=== PATIENT | female | born 1990 | race Caucasian/White ===

== ENCOUNTER 2016-09-02 20:42 | Emergency (ER) | payer OTHER ==
[~2016-09-02] VITALS: Ht 175.3 cm; Wt 64.6 kg
[~2016-09-02 20:42] MED LIST: ASPI325T4
[2016-09-02] MEDS ORDERED: SODIUM CHLORIDE FLUSH 10ML SYR IVF ONE (21:30)
[2016-09-02] MEDS ORDERED: SODIUM CHLORIDE 0.9% 1,000ML IVBOLUS ONE (21:30)
[2016-09-02 21:36] LABS: HEMOGLOBIN 14.4 g/dL (11.7-16.4)
[2016-09-02 21:48] LABS: ASPARTATE AMINO TRANSFERASE 15 U/L (15-37); BLOOD UREA NITROGEN 18 mg/dL (7-18)
[2016-09-02] MEDS ORDERED: OMNIPAQUE 350 MG/ML, 100ML BOTTLE ONE (22:20)
[2016-09-02 23:18] VITALS: BP 117/57
== END 2016-09-02 23:23 | disposition home or self-care (01) ==
LOC: ED 23:00
DX: R10.9 Unspecified abdominal pain (principal)
CPT/HCPCS: 36415; 74177; 80053; 81003; 83690; 84703; 85025; 96360; 99285; J7030; Q9967

== ENCOUNTER → 2017-02-22 | Outpatient (CLI) | payer OTHER ==
[~2017-02-22] MED LIST changes: +ASPI325T17; -ASPI325T4; +FIBER TAB PO; +NONE PER PT
== END | disposition home or self-care (01) ==
LOC: STAR 08:22
PROVIDERS: ATTEND Orthopaedic Surgery
DX: Z01.818 Encounter for other preprocedural examination (principal); I51.7 Cardiomegaly; M77.42 Metatarsalgia, left foot
CPT/HCPCS: 93005

== ENCOUNTER 2017-02-26 08:34 | Day surgery (SDC) | payer OTHER ==
[~2017-02-26] VITALS: Ht 172.7 cm; Wt 67.0 kg
[~2017-02-26 08:34] MED LIST changes: +CEFAZOLIN 1,000 MG ONE; +DEXAMETHASONE 4 MG/ML, 1ML ONE; +FENTANYL PF 100 MCG/2ML ONE; +GLYCOPYRROLATE 0.2MG/1ML, 5ML ONE; +MIDAZOLAM 1 MG/ML, 2ML ONE; +NEOSTIGMINE 1 MG/ML, 10ML ONE; +ONDANSETRON 2MG/ML, 2ML ONE; +PROPOFOL 10 MG/ML, 20ML ONE; +ROCURONIUM 10 MG/ML ONE; +SUCCINYLCHOLINE 20 MG/ML, 10ML ONE
[2017-02-26] MEDS ORDERED: LACTATED RINGERS 1,000 ML IV SCH (08:47)
[2017-02-26 09:09] VITALS: BP 141/90
[2017-02-26 09:35] LABS: HCG UR LOT HCG7030192
[2017-02-26] MEDS ORDERED: LIDOCAINE-MPF 2% ,5ML ONE (09:44)
[2017-02-26] MEDS ORDERED: LIDOCAINE GEL 2%, 5ML ONE (09:44)
[2017-02-26 09:47] LABS: HCG UR OBC PASS
[2017-02-26] MEDS ORDERED: PROMETHAZINE 25 MG/ML, 1ML IV PRN (10:30)
[2017-02-26] MEDS ORDERED: HYDROmorphone 1 MG/ML, 1ML IV PRN (10:30)
[2017-02-26] MEDS ORDERED: HYDROcodone/APAP 7.5-325MG/15ML UDC PO PRN (10:30)
[2017-02-26] MEDS ORDERED: ACETAMINOPHEN 325 MG TABLET PO PRN (10:30)
[2017-02-26] MEDS ORDERED: OXYcodone 5 MG/5 ML ORAL.SOL UDC PO PRN (10:30)
[2017-02-26] MEDS ORDERED: ONDANSETRON 2MG/ML, 2ML IVPush PRN (10:30)
[2017-02-26] MEDS ORDERED: ACETAMINOPHEN 650 MG/20.3 ML UDC ONE (11:55)
[2017-02-26] MEDS ORDERED: OXYcodone 5 MG/5 ML ORAL.SOL UDC ONE (11:55)
[2017-02-26] MEDS ORDERED: FENTANYL PF 100 MCG/2ML ONE (11:55)
[2017-02-26] MEDS: FENTANYL PF 100 MCG/2ML IV PRN (11:58)
== END 2017-02-26 14:00 ==
LOC: OUT 08:34
PROVIDERS: ATTEND Orthopaedic Surgery
DX: M21.6X2 Other acquired deformities of left foot (principal); M19.072 Primary osteoarthritis, left ankle and foot; Z88.0 Allergy status to penicillin; Z86.718 Personal history of other venous thrombosis and embolism; Z86.73 Personal history of transient ischemic attack (TIA), and cerebral infarction without residual deficits
CPT/HCPCS: 29898; 29999; 81025; J0330; J0690; J1100; J2250; J2405; J2704; J2710; J3010; J3490; J7120